=== PATIENT | female | born 1965 | race Two or more races ===

== ENCOUNTER 2017-10-31 22:50 | Emergency (ER) | payer BC ==
[~2017-10-31] VITALS: Ht 152.4 cm; Wt 52.2 kg
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
[2017-10-31] MEDS ORDERED: TDAP [DIPH/PERTUSSIS/TET] 0.5 ML VIAL IM ONE ×2 (23:30)
--- NOTE | 2017-11-01 00:04 | NUR ---
PT RESTING COMFORTABLY WITH FAMILY AT BEDSIDE. NAD. VSS. WILL CONTINUE TO MONITOR
--- NOTE | 2017-11-01 00:34 | NUR ---
Patient discharged to home in stable condition. Written and verbal after care instructions given. Patient verbalizes understanding of instruction. IV removed. Catheter intact and site benign. Pressure and 4x4 applied to site. No bleeding noted. AMBULATED WITH STEADY GAIT. NAD. VSS.
[2017-11-01 00:36] VITALS: BP 112/68
== END 2017-11-01 00:36 | disposition home or self-care (01) ==
LOC: ER 22:52
DX: S01.511A Laceration without foreign body of lip, initial encounter (principal); R55 Syncope and collapse; R11.10 Vomiting, unspecified; W20.8XXA Other cause of strike by thrown, projected or falling object, initial encounter; Y93.89 Activity, other specified; Y92.89 Other specified places as the place of occurrence of the external cause; Y99.8 Other external cause status
CPT/HCPCS: 12013; 90471; 90715; 99283; A4606; A6402; Z7610

== ENCOUNTER 2019-02-07 08:59 | Emergency (ER) | payer OTHER, BC ==
[~2019-02-07] VITALS: Ht 149.9 cm; Wt 51.7 kg
--- NOTE | 2019-02-07 09:15 | NUR ---
AT BEDSIDE FOR EVAL.
--- NOTE | 2019-02-07 09:23 | NUR ---
PT BROUGHT IN FROM HOME ACCOMPANIED BY FRIEND FOR C/C OF FEELING DIZZY LIKE ROOM IS SPINNING AND NAUSEA. PT ALERT WITH ORIENTATION NX 3 WILL CONTINUE TO MONITOR.
[2019-02-07] MEDS ORDERED: MECLIZINE HCL 12.5 MG TABLET PO ONE (09:30)
[2019-02-07] MEDS ORDERED: ONDANSETRON HCL/PF 4 MG/2 ML VIAL IVP ONE (09:30)
[2019-02-07] MEDS ORDERED: IV NS 0.9% 1,000 ML BAG IV ONE (09:30)
[2019-02-07] MEDS ORDERED: ONDANSETRON HCL/PF 4 MG/2 ML VIAL ONE (09:32)
[2019-02-07] MEDS ORDERED: MECLIZINE HCL 25 MG TABLET ONE (09:33)
[2019-02-07 09:45] LABS: EOSINOPHILS % (AUTO) 1.3 % (0.0-6.0); HEMATOCRIT 45 % (33-45); HEMOGLOBIN 15.2 g/dL (11.5-14.8); LYMPHOCYTES # (AUTO) 1.6 /CMM (0.8-4.8); LYMPHOCYTES % (AUTO) 37.6 % (20.0-44.0); MEAN CORPUSCULAR HGB CONC 34 g/dl (31.0-36.0); MEAN CORPUSCULAR VOLUME 92 fL (82-100); MONOCYTES # (AUTO) 0.2 /CMM (0.1-1.30); MONOCYTES % (AUTO) 5.2 % (2.0-12.0); NEUTROPHILS # (AUTO) 2.4 /CMM (1.8-8.9); NEUTROPHILS % (AUTO) 54.9 % (43.0-81.0); PLATELET COUNT (AUTO) 245 /CMM (150-450); WHITE BLOOD COUNT (AUTO) 4.3 K/uL (4.3-11.0)
--- NOTE | 2019-02-07 10:01 | NUR ---
PT REFUSES IV MD AWARE LAB [facility] SAMPLES
--- NOTE | 2019-02-07 10:08 | NUR ---
PT TAKEN TO CT SCAN AND BACK
[2019-02-07 10:13] LABS: CALCIUM, SERUM 9.2 mg/dL (8.5-10.1); CARBON DIOXIDE 30 mmol/L (21-32); CHLORIDE 104 mmol/L (98-107); CREATININE 0.6 mg/dL (0.6-1.3); GLUCOSE 90 mg/dL (74-106); POTASSIUM 4.5 mmol/L (3.5-5.1); SODIUM SERUM 140 mmol/L (136-145); UREA NITROGEN, BLOOD 13 mg/dL (7-18)
[2019-02-07 10:18] LABS: ALANINE AMINOTRANSFERASE 20 U/L (12-78); ALBUMIN 3.9 g/dL (3.4-5.0); ALCOHOL, BLOOD < 3 mg/dL (0-0); ALKALINE PHOSPHATASE 79 U/L (46-116); ASPARTATE AMINOTRANSFERASE 16 U/L (15-37); BILIRUBIN,DIRECT 0.1 mg/dL (0.0-0.2); BILIRUBIN,TOTAL 0.3 mg/dL (0.2-1.0); TOTAL PROTEIN, SERUM 7.4 g/dL (6.4-8.2)
[2019-02-07 11:38] VITALS: BP 102/66
--- NOTE | 2019-02-07 11:39 | NUR ---
PT DISCHARGED TO HOME ACCOMPANIEDBY SON WALKING WITH STEADY GAIT PT WILL FOLLOW UP WITH PCP
== END 2019-02-07 11:38 | disposition home or self-care (01) ==
LOC: ER 09:00
DX: R42 Dizziness and giddiness (principal); R11.0 Nausea; R00.1 Bradycardia, unspecified
CPT/HCPCS: 36415; 70450; 80048; 80076; 80307; 84484; 85025; 85730; 93005; 99284; J7030; J8597; G0480; J2405